=== PATIENT | female | born 1990 | race Caucasian/White ===

== ENCOUNTER 2024-08-14 20:00 | Emergency (ER) | payer OTHER, SELFPAY ==
[2024-08-14 20:06] VITALS: BP 121/79; PULSE 77; RESP 16; TEMP 37; O2SAT 98; BMI 23.7
--- NOTE | 2024-08-14 20:13 | ED_ITS ---
HPI - General Adult General Time Seen by Provider: 20:13 Date Seen: 08/14/24 Chief complaint: Extremity Pain/Injury, Lower Stated complaint: Poss Blood Clot - R leg/knee Time Seen by Provider: 08/14/24 20:02 Source: patient and RN notes reviewed Mode of arrival: ambulatory Limitations: no limitations History of Present Illness HPI narrative: This 33-year-old female is coming in with concern of a blood clot in her right leg. She has had radiofrequency ablation of varicose veins of both of her lower extremities. After the procedure, she had a small blood clot by the right ankle that was managed conservatively with aspirin and serial ultrasounds. She did not go on blood thinners. She did a lot of hiking over the weekend in [place], her muscles were sore but she started to note a red sore area on the medial side of her knee. There are no fevers or chills. She did not note any tics or bug bites. She has had no chest pain, no shortness of breath. She is on no chronic medications. Related Data Home Medications ?Medication ?Instructions ?Recorded ?Confirmed No Known Home Medications 08/14/24 08/14/24 Allergies Allergy/AdvReac Type Severity Reaction Status Date / Time No Known Drug Allergies Allergy Verified 08/14/24 20:08 Review of Systems Narrative: [facility] per HPI. [facility] History (Updated 08/14/24 @ 22:24 by Riana Ambrosio MD) Varicose veins of both lower extremities ?I83.93 - Asymptomatic varicose veins of bilateral lower extremities (ICD-10) Social History Smoking Status: Never smoker Do you use any of these nicotine containing products: None How often do you have a drink containing alcohol: never How often do you have six or more drinks on one occasion: Never AUDIT-C Alcohol total score: 0 Non-prescribed substance use: denies use Exam Const: Vital Signs, click to edit/add: Vital Signs - 24 hr 08/14/24 20:06 Temperature 98.6 F Pulse Rate [Pulse Oximeter] 77 Respiratory Rate 16 Blood Pressure [Ri ght Upper Arm] 121/79 Pulse Oximetry 98 Oxygen Delivery Me thod Room Air If Karina is a very pleasant 33-year-old female that is alert, interactive, no apparent distress. Face atraumatic, sclera clear, conjugate gaze. Able speak in complete sentences. No jugular venous distension. Lungs are clear, good air entry, no wheezing or crackles. CV regular rate and rhythm, no murmur, normal S1-S2, no S3-S4. She has no edema of either lower extremity. Calves are nontender, distal sensation and vascularity intact in her extremities. She has a area of erythema and warmth along the right medial knee, about 2-3 cm wide and about 4-5 cm long. This certainly looks like it could be a superficial thrombophlebitis. It is definitely tender and do feel induration of the area. Documenting provider has reviewed patient's vital signs: yes Course Course ED Course: Will obtain a CBC and D-dimer in case there is underlying thrombus. The D-dimer can be used in some of the algorithm some on decision making for anticoagulation. She declines any need for pain management at this time. We will get a venous ultrasound of her right lower extremity. Reevaluation(s) Time of Reevaluation #1: 22:14 Reevaluation #1: Did review with patient her ultrasound. We did discuss incidental finding of the complex cystic structure in the popliteal fossa, it is possible this could be a Carranza cyst. The steamfitter apprentice did not comment on the area which is presumably a superficial thrombophlebitis clinically. Her D-dimer is elevated at 3.77. We discussed conservative management with daily aspirin, heat. She can do activity as tolerated. The important message to her is that if this area is extending up into the thigh, increasing pain or swelling, she does need re- evaluation. We also reviewed the incidental finding of her hemoglobin being low at 10.9. She is not actively menstruating right now but does get periods. Vital Signs Vital signs: Initial Vital Signs Temperature 98.6 F 08/14/24 20:06 Temperature Source Temporal Artery Scan 08/14/24 20:06 Pulse Rate 77 08/14/24 20:06 Respiratory Rate 16 08/14/24 20:06 Blood Pressure 121/79 08/14/24 20:06 Blood Pressure Mean 93 08/14/24 20:06 Blood Pressure Position Sitting 08/14/24 20:06 Pulse Oximetry 98 08/14/24 20:06 Oxygen Delivery Method Room Air 08/14/24 20:06 Vital Signs Temperature 98.6 F 08/14/24 20:06 Pulse Rate 77 08/14/24 20:06 Respiratory Rate 16 08/14/24 20:06 Blood Pressure 121/79 08/14/24 20:06 Pulse Oximetry 98 08/14/24 20:06 Oxygen Delivery Method Room Air 08/14/24 20:06 Temperature 98.6 F 08/14/24 20:06 Pulse Rate 77 08/14/24 20:06 Respiratory Rate 16 08/14/24 20:06 Blood Pressure 121/79 08/14/24 20:06 Pulse Oximetry 98 08/14/24 20:06 Oxygen Delivery Method Room Air 08/14/24 20:06 Medical Decision Making Lab Data Lab results reviewed: Yes I reviewed the patient's lab results Labs: Lab Results 08/14/24 Range/Units 20:27 WBC 7.09 (4.50-11.00) K/uL RBC 4.28 (4.00-5.20) m/uL Hgb 10.9 L (12.0-16.0) gm/dL Hct 34.6 (33.0-51.0) % MCV 81 (80-100) fL MCH 26 (26-34) pg MCHC 32 (32-36) gm/dL RDW Coeff of Prashanth 17.0 H (11.5-15.5) % Plt Count 232 (140-440) K/uL Neut % (Auto) 45.0 (42.0-72.0) % Lymph % (Auto) 38.4 (20-44) % Dolores % (Auto) 10.6 (0.0-11.0) % Eos % (Auto) 5.1 (0.0-7.0) % Baso % (Auto) 0.8 (0.0-3.0) % Neut # (Auto) 3.19 (1.7-7.0) K/uL Lymph # (Auto) 2.72 (0.90-2.90) K/uL Dolores # (Auto) 0.80 (0.00-0.90) K/UL Eos # (Auto) 0.36 (0.00-0.50) K/uL Baso # (Auto) 0.06 (0.00-0.30) K/uL Abs Immat Gran (auto) 0.01 (0.00-0.30) K/uL Imm/Tot Granulo (auto) 0.1 % D-Dimer Quant (PE/DVT) 3.77 H (0.00-0.50) ug/ml Imaging Data Venous US: Attestation: I have reviewed the pertinent imaging results. Radiologist's impression: Patient: KARINA MAN Facility:?[facility] Patient ID:?[id number] Site Patient ID:?[id number]. Site :?[id number] Study:?US-Extremity Right LEV-08/14/2024 9:40:29 PM Ordering Physician:Negar Mayers Final Report: INDICATION: Pain, swelling. COMPARISON: None. TECHNIQUE: A compression venous ultrasound exam was performed of the right lower extremity using barnes-scale imaging, color Doppler, and spectral Doppler analysis. FINDINGS: Sonographic imaging of the right lower extremity demonstrates normal compressibility and color Doppler venous blood flow within the common femoral, femoral, deep femoral, and proximal greater saphenous veins. At a lower level the popliteal, peroneal, and posterior tibial veins also show normal compressibility and color Doppler venous blood flow. There is a 4.6 x 1.4 x 3.1 cm complex fluid collection in the right popliteal fossa with no internal vascularity. Limited imaging of the contralateral groin demonstrates a normal spectral waveform and color Doppler venous blood flow within the left common femoral vein. IMPRESSION: 1. Negative for acute DVT in the right lower extremity. 2. Complex right popliteal fossa cyst. Dictated by Dawn Gregorio MD @ 08/14/2024 10:07:03 PM (Electronic Signature) Discharge Plan Discharge Clinical Impression: Anemia Qualifiers: Anemia type: unspecified type Qualified Code(s): D64.9 - Anemia, unspecified Superficial thrombophlebitis Qualifiers: Superficial thrombophlebitis-Involved body area: lower extremity Laterality: right Qualified Code(s): I80.01 - Phlebitis and thrombophlebitis of superficial vessels of right lower extremity Patient Disposition: Home, Self-Care Condition: Stable Instructions: Superficial Thrombophlebitis (ED), Anemia (ED) Additional Instructions: Will need to follow up in clinic regarding your low hemoglobin of 10.9, recheck of the superficial thrombophlebitis and on follow-up of the cyst in the popliteal fossa of the right knee. This certainly could be a Carranza cyst but further imaging could be considered or orthopedic consultation. If the superficial thrombophlebitis is propagating and you are getting increasing pain and redness up the leg, do recommend re-evaluation. I would take a daily aspirin 325 mg enteric-coated until this is improved. You can use ibuprofen per bottle directions, supplement with Tylenol as needed for pain management. Hot packs to the area. Activity Level: Activity as Tolerated Prescriptions: No Action No Known Home Medications Follow Up/Referrals: Provider,Not a Local [Primary Care Provider] - Stand Alone Forms: [employer] Info Instructions
--- NOTE | 2024-08-14 20:19 | CRLHL7_ITS ---
For Patients: As a result of the Century Cures Act, medical imaging exams and procedure reports are released immediately into your electronic medical record. You may view this report before your referring provider. If you have questions, please contact your health care provider. INDICATION: Pain, swelling. COMPARISON: None. TECHNIQUE: A compression venous ultrasound exam was performed of the right lower extremity using barnes-scale imaging, color Doppler, and spectral Doppler analysis. FINDINGS: Sonographic imaging of the right lower extremity demonstrates normal compressibility and color Doppler venous blood flow within the common femoral, femoral, deep femoral, and proximal greater saphenous veins. At a lower level the popliteal, peroneal, and posterior tibial veins also show normal compressibility and color Doppler venous blood flow. There is a 4.6 x 1.4 x 3.1 cm complex fluid collection in the right popliteal fossa with no internal vascularity. Limited imaging of the contralateral groin demonstrates a normal spectral waveform and color Doppler venous blood flow within the left common femoral vein. IMPRESSION: 1. Negative for acute DVT in the right lower extremity. 2. Complex right popliteal fossa cyst. Dictated by Dawn Gregorio MD @ 08/14/2024 10:07:03 PM (Electronically Signed)
[2024-08-14 20:33] LABS: Basophils Absolute Auto 0.06 K/uL (0.00-0.30); Basophils Percent Auto 0.8 % (0.0-3.0); Eosinophils Absolute Auto 0.36 K/uL (0.00-0.50); Eosinophils Percent Auto 5.1 % (0.0-7.0); Hematocrit 34.6 % (33.0-51.0); Hemoglobin* 10.9 gm/dL (12.0-16.0); Immature Granulocytes Abs Auto 0.01 K/uL (0.00-0.30); Immature Granulocytes Pct Auto 0.1 %; Lymphocytes Absolute Auto 2.72 K/uL (0.90-2.90); Lymphocytes Percent Auto 38.4 % (20-44); Mean Corpuscular HGB Conc 32 gm/dL (32-36); Mean Corpuscular Hemoglobin 26 pg (26-34); Mean Corpuscular Volume 81 fL (80-100); Monocytes Percent Auto 10.6 % (0.0-11.0); Neutrophils Absolute Auto 3.19 K/uL (1.7-7.0); Platelet Count* 232 K/uL (140-440); Red Blood Count 4.28 m/uL (4.00-5.20); White Blood Count* 7.09 K/uL (4.50-11.00)
[2024-08-14 20:35] LABS: Slide Review Reflex No
[2024-08-14 20:53] LABS: D Dimer Quantitative* 3.77 ug/ml (0.00-0.50)
[2024-08-14 22:26] VITALS: BP 129/86; PULSE 71; RESP 16
== END 2024-08-14 22:26 | disposition home or self-care (01) ==
PROVIDERS: Emergency Provider Family Medicine
DX: I80.01 Phlebitis and thrombophlebitis of superficial vessels of right lower extremity (principal); D64.9 Anemia, unspecified
CPT/HCPCS: 36415; 85025; 85379; 93971; 99283; 99284

== ENCOUNTER 2024-12-26 10:36 | Outpatient (CLI) | payer OTHER, SELFPAY ==
[2024-12-26 19:31] LABS: Chlamydia DNA Amplified* NOT DETECTED (No Detected); GC DNA Amplified* NOT DETECTED (No Detected)
== END 2024-12-26 10:37 | disposition home or self-care (01) ==
PROVIDERS: Visit Provider Physician Assistant
DX: Z11.3 Encounter for screening for infections with a predominantly sexual mode of transmission (principal)
CPT/HCPCS: 86592; 86703; 86803; 87340; 87491; 87591